=== PATIENT | female | born 1960 | race Caucasian/White ===

== ENCOUNTER 2018-03-02 10:11 | Outpatient (CLI) | payer BC | END 2018-03-02 10:12 | disposition home or self-care (01) | LOC: BICMAMMO 10:11 | PROVIDERS: ATTEND Obstetrics & Gynecology | DX: Z12.31 Encounter for screening mammogram for malignant neoplasm of breast (principal) | CPT/HCPCS: 77063; 77067 ==

== ENCOUNTER 2019-03-03 12:48 | Outpatient (CLI) | payer BC ==
--- NOTE | 2019-03-03 14:18 | MMO ---
Bilateral MAMMO Bilat Screen [facility]. CLINICAL HISTORY: Patient is 58 years old and is seen for screening. The patient has no family history of breast cancer. The patient has no personal history of cancer. VIEWS: The views performed were: bilateral craniocaudal with tomosynthesis and bilateral mediolateral oblique with tomosynthesis. FILMS COMPARED: The present examination has been compared to prior imaging studies performed at [facility] on 02/05/2015, 02/14/2016, 02/25/2017 and 03/02/2018. This study has been interpreted with the assistance of computer-aided detection. MAMMOGRAM FINDINGS: The breasts are almost entirely fat. There is an irregular mass measuring 15 millimeters with spiculated margins seen in the upper-outer region of the right breast. Suspicious adjacent pleomorphic calcifications are noted. In the left breast, there are no suspicious masses, calcifications or areas of architectural distortion. IMPRESSION: MASS IN THE RIGHT BREAST REQUIRES ADDITIONAL EVALUATION. ADDITIONAL IMAGING. Recommend diagnostic mammography and focused breast ultrasound. THE RESULTS OF THIS EXAM WERE SENT TO THE PATIENT. ACR BI-RADS Category 0 - Incomplete: Need additional imaging evaluation. [facility] will notify the patient of the need for additional imaging services. MAMMOGRAPHY NOTE: 1. A negative mammogram report should not delay a biopsy if a dominant of clinically suspicious mass is present. 2. Approximately 10% to 15% of breast cancers are not detected by mammography. 3. Adenosis and dense breasts may obscure an underlying neoplasm. Reported by: EDISON STONE MD Electonically Signed: [id number]
== END 2019-03-03 12:49 | disposition home or self-care (01) ==
LOC: BICMAMMO 12:48
PROVIDERS: ATTEND Obstetrics & Gynecology
DX: Z12.31 Encounter for screening mammogram for malignant neoplasm of breast (principal); N63.10 Unspecified lump in the right breast, unspecified quadrant
CPT/HCPCS: 77063; 77067

== ENCOUNTER 2019-03-04 09:58 | Outpatient (CLI) | payer BC ==
--- NOTE | 2019-03-04 11:27 | MMO ---
Right Breast MAMMO Unilat Diag [facility]. CLINICAL HISTORY: Patient is 58 years old and is seen for diagnostic exam. The patient has no family history of breast cancer. The patient has no personal history of cancer. VIEWS: The views performed were: right craniocaudal spot compression with tomosynthesis; right mediolateral oblique spot compression with tomosynthesis; and right mediolateral with tomosynthesis. FILMS COMPARED: The present examination has been compared to prior imaging studies performed at [facility] on 02/25/2017, 03/02/2018, 03/03/2019 and 03/04/2019. This study has been interpreted with the assistance of computer-aided detection. MAMMOGRAM FINDINGS: The breast is almost entirely fat. There is an irregular mass measuring 21 millimeters with associated Fine linear-branching calcifications seen in the middle region of the right breast at 10 o'clock. IMPRESSION: MASS IN THE RIGHT BREAST IS HIGHLY SUGGESTIVE OF MALIGNANCY. BIOPSY IS RECOMMENDED. THE FINDINGS AND RECOMMENDATIONS WERE DISCUSSED WITH THE PATIENT PRIOR TO HER LEAVING THE CENTER. THE RESULTS OF THIS EXAM WERE SENT TO THE PATIENT. ACR BI-RADS Category 5 - Highly suggestive of malignancy - appropriate action should be taken MAMMOGRAPHY NOTE: 1. A negative mammogram report should not delay a biopsy if a dominant of clinically suspicious mass is present. 2. Approximately 10% to 15% of breast cancers are not detected by mammography. 3. Adenosis and dense breasts may obscure an underlying neoplasm. Reported by: ROCIO WAITE MD Electonically Signed: [id number]
--- NOTE | 2019-03-04 13:13 | ULT ---
RIGHT BREAST DIAGNOSTIC ULTRASOUND: INDICATIONS: Suspicious mass in the right breast 10 o'clock position. FINDINGS: Corresponding to the suspicious mass seen on the mammogram dated 03/04/2019 is a spiculated, hypoecho ic, shadowing mass, measuring 1.7 x 2.1 x 1.4 cm in the right breast 10 o'clock position, 7 cm from t he nipple. No suspicious adenopathy is evident within the right axilla. IMPRESSION: BI-RADS category 5 - highly suggestive of malignancy. Recommend ultrasound guided core biopsy. Pascual lambert were discussed with the patient. Findings called to Dr. Zamora' office at 11:23 a.m. on 03/04/2019. CODE CR POS: OFF
== END 2019-03-04 09:59 | disposition home or self-care (01) ==
LOC: BICMAMMO 09:58
PROVIDERS: ATTEND Obstetrics & Gynecology
DX: N63.10 Unspecified lump in the right breast, unspecified quadrant (principal)
CPT/HCPCS: G0279

== ENCOUNTER 2019-04-01 07:27 | Outpatient (CLI) | payer BC ==
[2019-04-01 15:40] LABS: #Eosinphils 0.2 thou/uL (0.0-0.7); #Lymphocytes 3.4 thou/uL (1.20-3.40); #Monocytes 0.5 thou/uL (0.11-0.59); #Neutrophils 6.6 thou/uL (1.40-6.50); %Basophils 0.4 % (0.0-1.0); %Eosinophils 1.6 % (0.0-10.0); %Lymphocytes 31.7 % (21.0-51.0); %Monocytes 4.7 % (0.0-10.0); %Neutrophils 61.6 % (42.0-75.0); Hemoglobin 13.7 g/dL (12.0-16.0); Mean Corpuscular HGB CONC 31.9 g/dL (32.0-36.0); Mean Corpuscular Hemoglobin 29.9 pg (27.0-31.0); Mean Corpuscular Volume 93.8 fL (78.0-98.0); Mean Platelet Volume 6.4 fL (7.4-10.4); Platelet Count 540 thou/uL (130-400); RBC Distribution Width 12.5 % (11.5-14.5); White Blood Cell (WBC) Count 10.7 thou/uL (4.8-10.8)
[2019-04-01 16:05] LABS: Anion Gap 13 mmol/L (10-20); BUN (Urea Nitrogen) 20 mg/dL (9.8-20.1); Calc. Creatinine Clearance 0 mL/min (70-130); Carbon Dioxide 30 mmol/L (22-29); Chloride 101 mmol/L (98-107); Estimated GFR-MDRD 75; Glucose 110 mg/dL (70-105); Potassium 4.1 mmol/L (3.5-5.1); Sodium 140 mmol/L (136-145)
--- NOTE | 2019-04-03 14:30 | EKG ---
Test Reason : Blood Pressure : / mmHG Vent. Rate : 082 BPM Atrial Rate : 082 BPM P-R Int : 184 ms QRS Dur : 072 ms QT Int : 352 ms P-R-T Axes : 060 020 038 degrees QTc Int : 411 ms Normal sinus rhythm Normal ECG When compared with ECG of 09-DEC-2012 17:32, No significant change was found Confirmed by YUE BLANCHARD (2) on 04/03/2019 2:30:20 PM Referred By: DALTON Confirmed By:YUE BLANCHARD
== END 2019-04-01 07:28 | disposition home or self-care (01) ==
LOC: LABBT 07:27
PROVIDERS: ATTEND Specialist
DX: Z01.818 Encounter for other preprocedural examination (principal); C50.911 Malignant neoplasm of unspecified site of right female breast
CPT/HCPCS: 80048; 85025; 93005; 93010

== ENCOUNTER 2019-04-05 06:55 | Day surgery (SDC) | payer BC ==
[2019-04-01 14:46] VITALS: BMI 32.8
--- NOTE | 2019-04-05 09:11 | NM ---
NUCLEAR MEDICINE LYMPHOSCINTIGRAPHY RIGHT BREAST: CLINICAL HISTORY: Malignant neoplasm of right breast. FINDINGS: Subsequent to administration of 0.402 mCi technetium 99m filtered sulfur colloid, of the perihilar di stribution of the right breast, there is visualization of activity at the right axilla localizing to expected region of right axillary lymph node. IMPRESSION: Right breast lymphoscintigraphy, as above. Transcribed Date/Time: 04/05/2019 9:13 AM
[2019-04-05] MEDS ORDERED: Lidocaine 1% PF 5 ML VIAL ONE (10:11)
[2019-04-05] MEDS ORDERED: PROPOFOL 200 MG/20 ML VIAL ONE (10:11)
[2019-04-05] MEDS ORDERED: Ondansetron PF 4 MG/2 ML Vial ONE (10:11)
[2019-04-05] MEDS ORDERED: Ketorolac Tromethamine 30 MG/ML VIAL ONE (11:21)
[2019-04-05] MEDS ORDERED: Fentanyl 100 MCG/2 ML VIAL ONE (11:37)
[2019-04-05] MEDS ORDERED: Bupivacaine 0.25% HCL 30 ML VIAL ONE ×2 (11:40→13:44)
[2019-04-05] MEDS ORDERED: Lidocaine 1% w/Epinephrine 1:100K 20 ML VIAL ONE ×2 (11:40→13:44)
[2019-04-05] MEDS ORDERED: Isosulfan Blue 50 MG/5 ML VIAL ONE (11:40)
--- NOTE | 2019-04-05 13:44 | MMO ---
RIGHT BREAST SPECIMEN: INDICATION: Right breast mass. COMPARISON: Diagnostic evaluation of 03/04/2019. FINDINGS: Two submitted specimen radiographs were presented from a surgical excision. The specimen contains a spiculated hyperdense mass, biopsy clip, and portions of a wire. IMPRESSION: Submitted specimen radiograph contains a mass, clip, and biopsy wire. Findings were called to the OR to Dr. Gonzalez at 1:39 p.m. on 04/05/2019. CODE CR POS: OFF
--- NOTE | 2019-04-05 18:46 | OP ---
DATE OF PROCEDURE: 04/05/2019 PREOPERATIVE DIAGNOSIS: Right breast cancer. POSTOPERATIVE DIAGNOSIS: Right breast cancer. TEST PERFORMED: Ultrasound-guided right breast needle localization, needle localized right breast lumpectomy, and right axillary sentinel lymph node biopsy. ANESTHESIA: General endotracheal. INDICATIONS: Patient is a 58-year-old white female. Recent imaging studies revealed a concerning area in her upper outer right breast. I performed an ultrasound-guided biopsy revealing invasive ductal carcinoma. After discussing options with the patient, she has elected to proceed with breast conservation surgery, for which she presents today. Lymphoscintigraphy was performed preoperatively revealing sentinel lymph nodes within the right axilla. DESCRIPTION OF OPERATION: Informed consent was obtained, patient was taken to the operating room, where general endotracheal anesthesia obtained. Patient in supine position. The right breast was infiltrated with 4 mL of Lymphazurin in the periareolar subdermal tissue. The breast was massaged for 5 minutes. It was then prepped with ChloraPrep and draped in a sterile fashion so as to include the axilla as well. Attention was turned first to the axilla. A transverse low axillary incision was created after local anesthetic was infiltrated. Dissection was carried through skin and subcutaneous tissue. Within the axilla, the Neoprobe was used to identify areas of maximum radio intensity. In so doing, I was able to identify 2 separate sentinel lymph nodes, each of which was dissected circumferentially between clamps and 2-0 silk ties and removed and passed off the field for permanent pathology. The first lymph node had counts in excess of 400 and was blue-stained. The second lymph node had counts of in excess of 150 and had minimal staining. There was no other area within the axilla that had count over about 15. There was no other blue lymphatic tissue identified either. Meticulous hemostasis was obtained with electrocautery. The wound was closed in layers with 3-0 and 4-0 Monocryl. An additional local anesthetic was infiltrated into the wound during closure. Attention was turned to the right breast. Ultrasound was utilized to identify the area of obvious malignancy at approximately the [address] about 7 cm from the nipple. The location of the malignancy was marked on the breast in a grid-like fashion. This was relatively superficial and was decided to take an island of skin over the top of the lesion and in light of the patient's large breast size. A localizing needle was passed through the malignancy in a medial to lateral fashion. An ellipse of skin was marked overlying the malignancy and incorporating the wire. Dissection was carried through skin and subcutaneous tissue. Flaps were raised superiorly and inferiorly as well as medially. Dissection was then carried down around the needle skirting underneath the needle as the needle had intensely been placed towards the posterior aspect of the lesion. I attempted to obtain wide margins superiorly and inferiorly. At the lateral aspect, the dissection was completed and the specimen was removed intact. It was tagged for orientation with sutures and submitted for specimen mammography. This revealed the malignancy and the biopsy clip to be present within the specimen. When I interrogated the specimen with ultrasound, however, it appeared that the margin was relatively close on the superior aspect, especially more superficially. I therefore decided to obtain an additional superior margin. This was dissected, removed from within the breast and tagged for orientation. This was nearly another centimeter of tissue in the superior aspect. It appeared by ultrasound that all of the margins were likely to be negative. Meticulous hemostasis obtained with electrocautery. The wound was irrigated. The wound was closed in layers with 3-0 and 4-0 Monocryl. Additional local anesthetic was infiltrated during closure. The anesthetic used was a mixture of 1% lidocaine with epinephrine and 0.25% Marcaine. Dermabond was placed externally over both the breast and the axillary incision. Patient tolerated the procedure well and there was negligible blood loss. She was taken to recovery room in stable condition. Job ID: [id number]
== END 2019-04-05 16:20 | disposition home or self-care (01) ==
LOC: SDC 06:55
PROVIDERS: ATTEND Specialist
DX: C50.411 Malignant neoplasm of upper-outer quadrant of right female breast (principal); E11.9 Type 2 diabetes mellitus without complications; I10 Essential (primary) hypertension; Z17.0 Estrogen receptor positive status [ER+]; Z79.84 Long term (current) use of oral hypoglycemic drugs; Z79.899 Other long term (current) drug therapy
CPT/HCPCS: 76098; 78195; 88307; 88342; A9541; J0131; J0690; J1885; J2001; J2405; J2704; J3010; Q9968; S0020

== ENCOUNTER 2019-05-09 06:34 | Day surgery (SDC) | payer BC ==
[2019-05-06 09:13] VITALS: BMI 33.2
[2019-05-09] MEDS ORDERED: Fentanyl 100 MCG/2 ML VIAL ONE ×2 (06:40)
[2019-05-09] MEDS ORDERED: Midazolam HCl 2 mg/2 ml Vial ONE (06:44)
[2019-05-09] MEDS ORDERED: Propofol 500 MG/50 ML VIAL ONE (06:44)
[2019-05-09] MEDS ORDERED: Ketorolac Tromethamine 30 MG/ML VIAL ONE (07:21)
[2019-05-09] MEDS ORDERED: Lidocaine 1% w/Epinephrine 1:100K 20 ML VIAL ONE (07:57)
[2019-05-09] MEDS ORDERED: Bupivacaine PF 0.5% 30 ML VIAL ONE (07:57)
--- NOTE | 2019-05-09 09:57 | RAD ---
EXAM: Single view of the chest HISTORY: Mediport placement COMPARISON: 12/09/2012 FINDINGS: Single view of the chest shows a normal sized cardiomediastinal silhouette. A left subclav nestor Mediport is seen with its tip in the superior vena cava. No pneumothorax is seen. There is no evidence of consolidation, mass, or pleural effusion. The bones are unremarkable. IMPRESSION: Status post Mediport placement without evidence of complication.
--- NOTE | 2019-05-09 11:06 | OP ---
DATE OF PROCEDURE: 05/09/2019 PREOPERATIVE DIAGNOSIS: Right breast cancer, needing chemotherapy access. POSTOPERATIVE DIAGNOSIS: Right breast cancer, needing chemotherapy access. PROCEDURES PERFORMED: Left subclavian vein standard size MediPort . ANESTHESIA: Intravenous sedation with local, 0.5% Marcaine 30 mL, mixed with 1% Xylocaine with epinephrine 30 mL. DESCRIPTION OF PROCEDURE: The patient was taken to the operating room, where under intravenous sedation, chest and neck were prepared with ChloraPrep and draped in routine fashion. Local anesthetic was infiltrated in the skin and subcutaneous tissue about the operative site. Infraclavicular approach used to cannulate the left subclavian vein, threading the J-wire, enlarging the skin site sharply, developing the subcutaneous pocket with blunt and sharp dissection, obtaining hemostasis with cautery. Dilator and Peel-Away sheath placed over the J-wire into the superior vena cava. Dilator and J-wire were removed. Catheter placed through the Peel-Away sheath and Peel-Away sheath removed. MediPort placed in the pocket, secured with 2 interrupted sutures of 3-0 Prolene, and after the J-wire removed, the catheter tailored to length under fluoroscopic visualization. Tip placed in optimal position in the superior vena cava. Catheter secured to the MediPort with the connecting device and subcutaneous tissue was approximated with 3-0 Monocryl, skin with subdermal 4-0 Monocryl. Final fluoroscopic images revealed good line placement. MediPort accessed with a Luther needle, aspirated blood and flushed with heparinized saline solution. The patient tolerated the procedure well. Job ID: [id number]
== END 2019-05-09 10:23 | disposition home or self-care (01) ==
LOC: SDC 06:34
PROVIDERS: ATTEND Specialist
PROC: 02HV33Z Insertion of Infusion Device into Superior Vena Cava, Percutaneous Approach (ICD-10-PCS; principal; 2019-05-09)
DX: C50.911 Malignant neoplasm of unspecified site of right female breast (principal); I10 Essential (primary) hypertension; E11.9 Type 2 diabetes mellitus without complications; Z17.0 Estrogen receptor positive status [ER+]; Z79.84 Long term (current) use of oral hypoglycemic drugs; Z79.899 Other long term (current) drug therapy
CPT/HCPCS: 71045; C1788; J0131; J0690; J1642; J1885; J2250; J2704; J3010; S0020

== ENCOUNTER 2019-11-29 10:24 | Outpatient (CLI) | payer BC ==
--- NOTE | 2019-11-29 10:58 | BD ---
EXAM: DEXA bone density examination HISTORY: 59-year-old postmenopausal female for screening COMPARISON: None FINDINGS: L1--bone mineral density 0.914 g/sq cm; T score -0.7 L2--bone mineral density 0.868 g/sq cm; T score -1.5 L3--bone mineral density 0.910 g/sq cm; T score -1.6 L4--bone mineral density 0.920 g/sq cm; T score -1.3 Total L1-L4--bone mineral density 0.903 g/sq cm; T score -1.3 Left femoral neck--bone mineral density0.689; T score -1.4 Total proximal left femur--bone mineral density 0.96; T score -0.4 IMPRESSION: Osteopenia. This patient has a 10 year WHO fracture risk of a major osteoporotic fracture of 7.6% and of a hip fracture of 0.6%.
== END 2019-11-29 10:25 | disposition home or self-care (01) ==
LOC: BICMAMMO 10:24
PROVIDERS: ATTEND Internal Medicine Hematology & Oncology
DX: Z13.820 Encounter for screening for osteoporosis (principal); C50.411 Malignant neoplasm of upper-outer quadrant of right female breast; M85.89 Other specified disorders of bone density and structure, multiple sites; Z78.0 Asymptomatic menopausal state
CPT/HCPCS: 77080

== ENCOUNTER 2020-03-23 10:32 | Outpatient (CLI) | payer BC ==
--- NOTE | 2020-03-23 11:13 | MMO ---
Bilateral MAMMO Bilat Diag [facility]. CLINICAL HISTORY: Patient is 59 years old and is seen for diagnostic exam. The patient has no family history of breast cancer. The patient has a history of Excisional biopsy procedure revealed invasive moderately differentiated ductal right breast carcinoma in March,. The patient has a history of right Ultrasound Guided Core Biopsy in 2019 - malignant and right Lumpectomy in 2019 - malignant. VIEWS: The views performed were: bilateral craniocaudal with tomosynthesis; bilateral mediolateral oblique with tomosynthesis; and bilateral mediolateral with tomosynthesis. FILMS COMPARED: The present examination has been compared to prior imaging studies performed at [facility] on 03/02/2018, 03/03/2019 and 03/04/2019. This study has been interpreted with the assistance of computer-aided detection. MAMMOGRAM FINDINGS: There are scattered fibroglandular densities. Finding 1: There are stable benign appearing calcifications seen in both breasts. Finding 2: There is an area of architectural distortion with associated post-surgical scar seen in the upper-outer region of the right breast. There are no suspicious masses, suspicious calcifications, or new areas of architectural distortion. IMPRESSION: THERE IS NO MAMMOGRAPHIC EVIDENCE OF MALIGNANCY. A ROUTINE FOLLOW-UP MAMMOGRAM IN 1 YEAR IS RECOMMENDED. THE RESULTS OF THIS EXAM WERE SENT TO THE PATIENT. ACR BI-RADS Category 2 - Benign finding MAMMOGRAPHY NOTE: 1. A negative mammogram report should not delay a biopsy if a dominant of clinically suspicious mass is present. 2. Approximately 10% to 15% of breast cancers are not detected by mammography. 3. Adenosis and dense breasts may obscure an underlying neoplasm. Reported by: JOSE MIGUEL GALLOWAY MD Electonically Signed: [id number]
== END 2020-03-23 10:33 | disposition home or self-care (01) ==
LOC: BICMAMMO 10:32
PROVIDERS: ATTEND Specialist
DX: C50.911 Malignant neoplasm of unspecified site of right female breast (principal)
CPT/HCPCS: 77066; G0279

== ENCOUNTER 2020-11-29 10:41 | Outpatient (CLI) | payer BC | END 2020-11-29 10:42 | disposition home or self-care (01) | LOC: BICMAMMO 10:41 | PROVIDERS: ATTEND Internal Medicine Hematology & Oncology | DX: M85.89 Other specified disorders of bone density and structure, multiple sites (principal); C50.919 Malignant neoplasm of unspecified site of unspecified female breast; Z79.811 Long term (current) use of aromatase inhibitors | CPT/HCPCS: 77080 ==

== ENCOUNTER 2021-03-25 09:58 | Outpatient (CLI) | payer BC | END 2021-03-25 09:59 | disposition home or self-care (01) | LOC: BICMAMMO 09:58 | PROVIDERS: ATTEND Specialist | DX: Z08 Encounter for follow-up examination after completed treatment for malignant neoplasm (principal); Z85.3 Personal history of malignant neoplasm of breast | CPT/HCPCS: 77066; G0279 ==

== ENCOUNTER 2021-10-16 18:23 | Inpatient (IN) | payer BC ==
[2021-10-16] MEDS ORDERED: Ketorolac Tromethamine 30 MG/ML VIAL ONE (19:52)
[2021-10-16 20:05] LABS: Mean Corpuscular HGB CONC 32.8 g/dL (32.0-36.0); Mean Corpuscular Hemoglobin 31.3 pg (27.0-31.0); Mean Corpuscular Volume 95.6 fL (78.0-98.0); Mean Platelet Volume 5.9 fL (7.4-10.4); Platelet Count 322 thou/uL (130-400); RBC Distribution Width 12.6 % (11.5-14.5); Red Blood Cell (RBC) Count 3.83 mill/uL (4.20-5.40)
[2021-10-16 20:08] LABS: Bacteria/HPF 4+ HPF (None Seen); Bilirubin Negative (Negative); Blood, Urine 1+ (Negative); Clarity Clear (Clear); Glucose, Urine (Dipstick) Normal (Negative); Ketone, Urine Negative (Negative); Leukocyte 500 Leu/uL (Negative); Nitrite Negative (Negative); Protein, Urine (Dipstick) 70 mg/dL (Neg-Trace); Specific Gravity, Urine 1.016 (1.002-1.036); Squamous Epithelial 0-3 HPF (0-3); Urobilinogen Normal mg/dL (Less than 2); pH, Urine 5.5 (5.0-9.0)
[2021-10-16 20:09] LABS: WBC/HPF Greater than 50 HPF (0-3)
[2021-10-16 20:21] LABS: Band 10 % (5-11); Lymphocytes 8 % (21-51); MDiff Complete? YES; Monocytes 7 % (0-10); Neutrophil 74 % (42-75); Platelet Morphology Comment Appears Adequate; Polychromasia SLIGHT = 2-3 cells (100X) (0-2/hpf); Reactive Lymphocytes 1 % (0-10)
[2021-10-16 20:22] LABS: ALT (SGPT) 29 U/L (8-55); AST (SGOT) 21 U/L (5-34); Albumin 3.6 g/dL (3.4-4.8); Alkaline Phosphatase 107 U/L (40-110); Anion Gap 15 mmol/L (10-20); BUN (Urea Nitrogen) 21 mg/dL (9.8-20.1); Bilirubin, Total 0.7 mg/dL (0.2-1.2); Calc. Creatinine Clearance 0 mL/min (70-130); Calcium 9.3 mg/dL (7.8-10.44); Carbon Dioxide 28 mmol/L (23-31); Chloride 95 mmol/L (98-107); Globulin 3.7 g/dL (2.4-3.5); Glucose 213 mg/dL (80-115); Potassium 3.5 mmol/L (3.5-5.1); Protein, Total 7.3 g/dL (5.8-8.1); Sodium 134 mmol/L (136-145)
[2021-10-16] MEDS ORDERED: cefTRIAXone\\ROCEPHIN 1 GM VIAL ONE (20:31)
[2021-10-16] MEDS ORDERED: Piperacillin/Tazobactam 3.375 GM in Sodium Chloride 0.9% 100 ML IVPB SCH (22:45)
[2021-10-16] MEDS ORDERED: Acetaminophen 650 MG Suppository PR PRN (23:31)
[2021-10-16] MEDS ORDERED: Ondansetron ODT 4 MG TAB PO PRN (23:31)
[2021-10-16] MEDS ORDERED: Ondansetron PF 4 MG/2 ML Vial IVP PRN (23:31)
[2021-10-16] MEDS ORDERED: Acetaminophen 325 MG TAB PO PRN (23:31)
[2021-10-17] MEDS ORDERED: Dextrose 50% Abboject 50 ML SYRINGE SLOW IVP PRN (01:26)
[2021-10-17] MEDS ORDERED: Dextrose 5% in Water 1,000 ML IV PRN (01:26)
[2021-10-17] MEDS ORDERED: HumaLOG 300 UNITS/3 ML VIAL SC PRN ×2 (01:26)
[2021-10-17 01:54] VITALS: BMI 35.3
[2021-10-17] MEDS ORDERED: VANCOMYCIN 1.25 GM/250 ML BAG 1.25 GM in Premix Bag 1 BAG IVPB SCH (02:00)
[2021-10-17] MEDS: Sodium Chloride 0.9% 1,000 ML IV SCH ×3 (02:57→20:00)
[2021-10-17] MEDS: Vancomycin 1.5 GRAM/300 ML BAG 1.5 GM in Premix Bag 1 BAG IVPB SCH (04:11)
[2021-10-17 07:32] LABS: #Lymphocytes 0.8 thou/uL (1.20-3.40); #Monocytes 0.5 thou/uL (0.11-0.59); #Neutrophils 10.5 thou/uL (1.40-6.50); %Basophils 0.1 % (0.0-1.0); %Eosinophils 0.4 % (0.0-10.0); %Lymphocytes 6.4 % (21.0-51.0); %Monocytes 4.2 % (0.0-10.0); Hemoglobin 11.2 g/dL (12.0-16.0); Mean Corpuscular HGB CONC 32.7 g/dL (32.0-36.0); Mean Corpuscular Hemoglobin 31.7 pg (27.0-31.0); Mean Corpuscular Volume 97.2 fL (78.0-98.0); Mean Platelet Volume 6.5 fL (7.4-10.4); Platelet Count 311 thou/uL (130-400); RBC Distribution Width 12.5 % (11.5-14.5); Red Blood Cell (RBC) Count 3.54 mill/uL (4.20-5.40); White Blood Cell (WBC) Count 11.8 thou/uL (4.8-10.8)
[2021-10-17 07:53] LABS: Anion Gap 12 mmol/L (10-20); BUN (Urea Nitrogen) 21 mg/dL (9.8-20.1); Calc. Creatinine Clearance 84 mL/min (70-130); Calcium 9.1 mg/dL (7.8-10.44); Carbon Dioxide 27 mmol/L (23-31); Chloride 100 mmol/L (98-107); Glucose 170 mg/dL (80-115); Hemoglobin A1c 7.8 % (4.0-6.0); Potassium 3.4 mmol/L (3.5-5.1); Sodium 136 mmol/L (136-145)
[2021-10-17] MEDS: Enoxaparin Sodium 40 MG/0.4 ML SYRINGE SC SCH (08:14)
[2021-10-17] MEDS: Piperacillin/Tazobactam 3.375 GM in Sodium Chloride 0.9% 100 ML IVPB SCH ×4 (08:26→17:43)
[2021-10-17] MEDS: Ketorolac Tromethamine 30 MG/ML VIAL IVP PRN (14:06)
[2021-10-18] MEDS: Piperacillin/Tazobactam 3.375 GM in Sodium Chloride 0.9% 100 ML IVPB SCH ×3 (00:41→16:53)
[2021-10-18] MEDS: Sodium Chloride 0.9% 1,000 ML IV SCH ×2 (00:45→10:58)
[2021-10-18] MEDS: Ketorolac Tromethamine 30 MG/ML VIAL IVP PRN ×2 (03:13→20:35)
[2021-10-18] MEDS: Vancomycin 1.5 GRAM/300 ML BAG 1.5 GM in Premix Bag 1 BAG IVPB SCH (04:44)
[2021-10-18] MEDS: Enoxaparin Sodium 40 MG/0.4 ML SYRINGE SC SCH (08:01)
[2021-10-18 08:37] LABS: #Eosinphils 0.1 thou/uL (0.0-0.7); #Lymphocytes 1.1 thou/uL (1.20-3.40); #Monocytes 0.6 thou/uL (0.11-0.59); #Neutrophils 5.7 thou/uL (1.40-6.50); %Basophils 0.3 % (0.0-1.0); %Eosinophils 1.5 % (0.0-10.0); %Lymphocytes 14.3 % (21.0-51.0); %Monocytes 8.3 % (0.0-10.0); %Neutrophils 75.7 % (42.0-75.0); Hemoglobin 10.8 g/dL (12.0-16.0); Mean Corpuscular HGB CONC 31.7 g/dL (32.0-36.0); Mean Corpuscular Volume 97.7 fL (78.0-98.0); Mean Platelet Volume 5.7 fL (7.4-10.4); Platelet Count 360 thou/uL (130-400); RBC Distribution Width 12.7 % (11.5-14.5); White Blood Cell (WBC) Count 7.6 thou/uL (4.8-10.8)
[2021-10-18 09:04] LABS: Anion Gap 12 mmol/L (10-20); BUN (Urea Nitrogen) 18 mg/dL (9.8-20.1); Calc. Creatinine Clearance 85 mL/min (70-130); Carbon Dioxide 26 mmol/L (23-31); Chloride 102 mmol/L (98-107); Glucose 188 mg/dL (80-115); Potassium 3.4 mmol/L (3.5-5.1); Sodium 137 mmol/L (136-145)
[2021-10-18] MEDS ORDERED: Non-Formulary Item 1 EACH (Sitagliptin Phos/Metformin Hcl [Janumet] 50 MG/500 MG Tablet) PO SCH (09:36)
[2021-10-18] MEDS: metFORMIN 500 MG TAB PO SCH (16:54)
[2021-10-18] MEDS: Alogliptin 6.25 MG TAB PO SCH (16:54)
[2021-10-18] MEDS ORDERED: Simvastatin 10 MG TAB PO SCH (21:00)
[2021-10-19] MEDS: Piperacillin/Tazobactam 3.375 GM in Sodium Chloride 0.9% 100 ML IVPB SCH ×2 (00:59→10:20)
[2021-10-19] MEDS ORDERED: Anastrozole 1 MG TAB PO SCH (09:00)
[2021-10-19] MEDS: metFORMIN 500 MG TAB PO SCH ×2 (10:22→18:06)
[2021-10-19] MEDS: Enoxaparin Sodium 40 MG/0.4 ML SYRINGE SC SCH (10:22)
[2021-10-19] MEDS: Alogliptin 6.25 MG TAB PO SCH ×2 (10:22→18:06)
[2021-10-19] MEDS ORDERED: cefTRIAXone\\ROCEPHIN 1 GM in Sodium Chloride 0.9% 100 ML IVPB SCH (17:00)
[2021-10-19 19:24] VITALS: BP 148/66; TEMP 98.5
== END 2021-10-19 19:25 | disposition home or self-care (01) | DRG 872 ==
LOC: ERS 18:23 → INTOOBSV 22:03 → T4-B 22:03 → OBSVTOIN 10-17 11:48
PROVIDERS: ADMIT Internal Medicine; ATTEND Internal Medicine
DX: A41.51 Sepsis due to Escherichia coli [E. coli] (principal); N13.6 Pyonephrosis; E87.1 Hypo-osmolality and hyponatremia; E87.0 Hyperosmolality and hypernatremia; Z23 Encounter for immunization; N18.2 Chronic kidney disease, stage 2 (mild); Z20.822 Contact with and (suspected) exposure to COVID-19; E78.00 Pure hypercholesterolemia, unspecified; C50.911 Malignant neoplasm of unspecified site of right female breast; E78.5 Hyperlipidemia, unspecified; I12.9 Hypertensive chronic kidney disease with stage 1 through stage 4 chronic kidney disease, or unspecified chronic kidney disease; E11.22 Type 2 diabetes mellitus with diabetic chronic kidney disease; E87.6 Hypokalemia; Z98.51 Tubal ligation status; Z90.710 Acquired absence of both cervix and uterus; Z98.890 Other specified postprocedural states; Z79.899 Other long term (current) drug therapy
CPT/HCPCS: 36415; 36416; 74176; 80048; 80053; 81003; 81015; 83036; 83605; 85025; 87040; 87077; 87086; 87149; 87186; 96365; 96372; 96374; 96375; 96376; G0378; J0696; J1650; J1815; J1885; J2543; J3370; J3490; J7050; U0003; U0005

== ENCOUNTER 2021-10-31 13:21 | Outpatient (CLI) | payer BC ==
[2021-10-31 14:43] LABS: Bilirubin Neg (Negative); Blood, Urine Negative (Negative); Clarity Clear (Clear); Glucose, Urine (Dipstick) Normal (Negative); Ketone, Urine Negative (Negative); Leukocyte 25 (Negative); Nitrite Negative (Negative); Protein, Urine (Dipstick) Negative (Neg-Trace); Specific Gravity, Urine 1.005 (1.002-1.036); Urobilinogen Normal mg/dL (Less than 2)
[2021-10-31 14:50] LABS: Hemoglobin 12.8 g/dL (12.0-15.5); Mean Corpuscular HGB CONC 31.5 g/dL (32.0-36.0); Mean Corpuscular Volume 95.1 fl (81.6-98.3); Mean Platelet Volume 9.3 fl (7.4-10.4); Platelet Count 662 10x3/uL (150-450); RBC Distribution Width 13.4 % (11.5-14.5); Red Blood Cell (RBC) Count 4.27 10x6/uL (3.90-5.03); White Blood Cell (WBC) Count 10.7 10x3/uL (3.5-10.5)
[2021-10-31 14:51] LABS: Bacteria/HPF None Seen HPF (None Seen); RBC/HPF 0-3 HPF (0-3); Squamous Epithelial 0-3 HPF (0-3); WBC/HPF 0-3 HPF (0-3)
[2021-10-31 15:08] LABS: Anion Gap 22 mmol/L (10-20); BUN (Urea Nitrogen) 21 mg/dL (9.8-20.1); Calc. Creatinine Clearance 0 mL/min (70-130); Calcium 10.3 mg/dL (7.8-10.44); Carbon Dioxide 25 mmol/L (23-31); Chloride 96 mmol/L (98-107); Glucose 184 mg/dL (80-115); Sodium 138 mmol/L (136-145)
[2021-10-31 15:14] LABS: Potassium 4.9 mmol/L (3.5-5.1)
== END 2021-10-31 13:22 | disposition home or self-care (01) ==
LOC: LABBT 13:21
PROVIDERS: ATTEND Urology
DX: Z01.818 Encounter for other preprocedural examination (principal); N20.0 Calculus of kidney; Z20.822 Contact with and (suspected) exposure to COVID-19
CPT/HCPCS: 80048; 81001; 85027; 87086; 93005; 93010; U0003; U0005

== ENCOUNTER 2021-11-04 07:06 | Day surgery (SDC) | payer BC ==
[2021-11-01 14:27] VITALS: BMI 32.2
[2021-11-04 07:42] LABS: INR-International Normal Ratio 0.9; Prothrombin Time 11.8 sec (12.0-14.7)
[2021-11-04 07:43] LABS: PTT 27.6 sec (22.9-36.1)
[2021-11-04] MEDS ORDERED: cefTRIAXone\\ROCEPHIN 1 GM in Sodium Chloride 0.9% 100 ML IVPB SCH (08:30)
[2021-11-04] MEDS ORDERED: Fentanyl 100 MCG/2 ML VIAL ONE (08:34)
[2021-11-04] MEDS ORDERED: Sodium Bicarbonate 2.5 MEQ/5 ML VIAL ONE (08:34)
[2021-11-04] MEDS ORDERED: Lidocaine 1% PF 5 ML VIAL ONE (08:34)
[2021-11-04] MEDS ORDERED: Midazolam HCl 2 mg/2 ml Vial ONE (08:34)
[2021-11-04 13:57] VITALS: BP 133/71; TEMP 98.9
[2021-11-04] MEDS ORDERED: Iopamidol 300 61% 50 ML VIAL FS ONE (14:02)
== END 2021-11-04 12:35 | disposition home or self-care (01) ==
LOC: SPEC 07:06
PROVIDERS: ATTEND Urology
PROC: 0T133JD Bypass Right Kidney Pelvis to Cutaneous with Synthetic Substitute, Percutaneous Approach (ICD-10-PCS; principal; 2021-11-04)
DX: N20.0 Calculus of kidney (principal); E78.5 Hyperlipidemia, unspecified; E11.9 Type 2 diabetes mellitus without complications; I10 Essential (primary) hypertension; E78.00 Pure hypercholesterolemia, unspecified; Z85.3 Personal history of malignant neoplasm of breast; Z86.14 Personal history of Methicillin resistant Staphylococcus aureus infection; Z79.811 Long term (current) use of aromatase inhibitors; Z79.84 Long term (current) use of oral hypoglycemic drugs; Z79.899 Other long term (current) drug therapy
CPT/HCPCS: 50430; 50433; 85610; 85730; J0696; J2250; J3010; J3490; Q9967

== ENCOUNTER 2021-11-05 08:00 | Day surgery (SDC) | payer BC ==
[2021-11-01 14:42] VITALS: BMI 32.2
[2021-11-05] MEDS ORDERED: CEFAZOLIN 2 GM VIAL ONE (08:29)
[2021-11-05] MEDS ORDERED: Lidocaine 1% MPF 2 ML VIAL ONE (08:29)
[2021-11-05] MEDS ORDERED: Sodium Chloride 0.9% 100 ML ONE (08:30)
[2021-11-05] MEDS ORDERED: Ioversol 68 % 50 ML VIAL ONE (09:59)
[2021-11-05] MEDS ORDERED: fentaNYL Citrate/PF 100 MCG/2 ML SYRINGE ONE (09:59)
[2021-11-05] MEDS ORDERED: Bupivacaine 0.25% HCL 30 ML VIAL ONE (10:01)
[2021-11-05] MEDS ORDERED: Lidocaine 1% PF 5 ML VIAL ONE (10:14)
[2021-11-05] MEDS ORDERED: Ondansetron PF 4 MG/2 ML Vial ONE (10:14)
[2021-11-05] MEDS ORDERED: PROPOFOL 200 MG/20 ML VIAL ONE (10:14)
[2021-11-05] MEDS ORDERED: PHENYLEPHRINE-NS 100 MCG/ML 10 ML SYRINGE ONE (10:14)
[2021-11-05] MEDS ORDERED: Glycopyrrolate 0.2 MG/ML 5 ML SYRINGE ONE (10:14)
[2021-11-05] MEDS ORDERED: Dexamethasone 20 MG/5 ML VIAL ONE (10:14)
[2021-11-05] MEDS ORDERED: Rocuronium Bromide 10 MG/ML (10ML VIAL) ONE (10:14)
[2021-11-05] MEDS ORDERED: Phenazopyridine HCl 100 MG TAB ONE (12:17)
[2021-11-05] MEDS ORDERED: Ketorolac Tromethamine 30 MG/ML VIAL ONE (12:17)
[2021-11-05] MEDS ORDERED: Oxybutynin 5 MG TAB ONE (12:17)
[2021-11-05] MEDS ORDERED: Fentanyl 100 MCG/2 ML VIAL ONE (12:50)
== END 2021-11-05 14:08 | disposition home or self-care (01) ==
LOC: SDC 08:00
PROVIDERS: ATTEND Urology
PROC: 0TC03ZZ Extirpation of Matter from Right Kidney, Percutaneous Approach (ICD-10-PCS; principal; 2021-11-05)
PROC: 0T768DZ Dilation of Right Ureter with Intraluminal Device, Via Natural or Artificial Opening Endoscopic (ICD-10-PCS; principal; 2021-11-05)
DX: N20.0 Calculus of kidney (principal); I10 Essential (primary) hypertension; E11.9 Type 2 diabetes mellitus without complications; Z79.84 Long term (current) use of oral hypoglycemic drugs; Z79.899 Other long term (current) drug therapy
CPT/HCPCS: 74018; 76000; 82365; 88300; C1894; C2617; J0690; J1100; J1885; J2405; J2704; J3010; J3490; Q9967; S0020

== ENCOUNTER 2021-12-18 09:44 | Outpatient (CLI) | payer BC | END 2021-12-18 09:45 | disposition home or self-care (01) | LOC: BICMAMMO 09:44 | PROVIDERS: ATTEND Internal Medicine Hematology & Oncology | DX: M85.89 Other specified disorders of bone density and structure, multiple sites (principal) | CPT/HCPCS: 77080 ==

== ENCOUNTER 2022-03-26 10:16 | Outpatient (CLI) | payer BC | END 2022-03-26 10:17 | disposition home or self-care (01) | LOC: BICMAMMO 10:16 | PROVIDERS: ATTEND Specialist | DX: Z12.31 Encounter for screening mammogram for malignant neoplasm of breast (principal) | CPT/HCPCS: 77063; 77067 ==

== ENCOUNTER 2023-02-14 23:00 | Emergency (ER) | payer BC ==
[2023-02-14 23:52] LABS: #Neutrophils 9.8 thou/uL (1.40-6.50); %Basophils 0.3 % (0.0-1.0); %Eosinophils 0.3 % (0.0-10.0); %Lymphocytes 13.9 % (21.0-51.0); %Monocytes 7.5 % (0.0-10.0); %Neutrophils 77.4 % (42.0-75.0); Hematocrit 39.3 % (36.0-47.0); Hemoglobin 12.8 g/dL (12.0-16.0); Mean Corpuscular HGB CONC 32.6 g/dL (32.0-36.0); Mean Corpuscular Hemoglobin 30.3 pg (27.0-31.0); Mean Corpuscular Volume 93.1 fl (78.0-98.0); Mean Platelet Volume 8.1 fL (7.4-10.4); Platelet Count 408 10x3/uL (130-400); RBC Distribution Width 13.3 % (11.5-14.5); Red Blood Cell (RBC) Count 4.22 mill/uL (4.20-5.40); White Blood Cell (WBC) Count 12.6 10x3/uL (4.8-10.8)
[2023-02-15 00:22] LABS: ALT (SGPT) 10 U/L (8-55); AST (SGOT) 8 U/L (5-34); Albumin 4.2 g/dL (3.4-4.8); Alkaline Phosphatase 94 U/L (40-110); Anion Gap 17 mmol/L (10-20); BUN (Urea Nitrogen) 19 mg/dL (9.8-20.1); Bilirubin, Total 0.4 mg/dL (0.2-1.2); Calc. Creatinine Clearance 0 mL/min (70-130); Carbon Dioxide 29 mmol/L (23-31); Chloride 95 mmol/L (98-107); Estimated GFR 75; Globulin 3.4 g/dL (2.4-3.5); Glucose 165 mg/dL (80-115); Potassium 3.6 mmol/L (3.5-5.1); Protein, Total 7.6 g/dL (5.8-8.1); Sodium 137 mmol/L (136-145)
[2023-02-15 00:31] LABS: Troponin I Less than 0.010 ng/mL (< 0.028)
== END 2023-02-15 01:46 | disposition left against medical advice (07) ==
LOC: ERS 23:00
DX: Z53.21 Procedure and treatment not carried out due to patient leaving prior to being seen by health care provider (principal)
CPT/HCPCS: 36415; 36416; 80053; 84484; 85025

== ENCOUNTER 2023-03-27 08:40 | Outpatient (CLI) | payer BC | END 2023-03-27 08:41 | disposition home or self-care (01) | LOC: BICMAMMO 08:40 | PROVIDERS: ATTEND Specialist | DX: Z12.31 Encounter for screening mammogram for malignant neoplasm of breast (principal); Z85.3 Personal history of malignant neoplasm of breast; Z98.890 Other specified postprocedural states | CPT/HCPCS: 77063; 77067 ==

== ENCOUNTER 2023-04-07 13:53 | Outpatient (CLI) | payer BC | END 2023-04-07 13:54 | disposition home or self-care (01) | LOC: BICMAMMO 13:53 | PROVIDERS: ATTEND Internal Medicine Hematology & Oncology | DX: M85.89 Other specified disorders of bone density and structure, multiple sites (principal); C50.411 Malignant neoplasm of upper-outer quadrant of right female breast; T38.6X5A Adverse effect of antigonadotrophins, antiestrogens, antiandrogens, not elsewhere classified, initial encounter | CPT/HCPCS: 77080 ==

== ENCOUNTER 2023-06-12 13:24 | Inpatient (IN) | payer BC, MEDICARE ==
[2023-06-12] MEDS ORDERED: Cefepime 2 GM VIAL ONE (14:02)
[2023-06-12] MEDS ORDERED: Sodium Chloride 0.9% 100 ML ONE (14:02)
[2023-06-12 14:06] LABS: #Basophils 0.1 thou/uL (0.0-0.2); #Eosinphils 0.2 thou/uL (0.0-0.7); #Monocytes 0.7 thou/uL (0.11-0.59); #Neutrophils 8.4 thou/uL (1.40-6.50); %Basophils 0.5 % (0.0-1.0); %Lymphocytes 14.5 % (21.0-51.0); %Neutrophils 75.6 % (42.0-75.0); Hematocrit 35.5 % (36.0-47.0); Mean Corpuscular Hemoglobin 28.9 pg (27.0-31.0); Mean Corpuscular Volume 93.4 fl (78.0-98.0); Mean Platelet Volume 8.2 fL (7.4-10.4); Platelet Count 686 10x3/uL (130-400); RBC Distribution Width 13.5 % (11.5-14.5); White Blood Cell (WBC) Count 11.1 10x3/uL (4.8-10.8)
[2023-06-12] MEDS ORDERED: LevoFLOXacin 750 mg/D5W 150 ml Premix Bag ONE (14:16)
[2023-06-12 14:18] LABS: Prothrombin Time 13.1 sec (12.0-14.7)
[2023-06-12 14:21] LABS: Bilirubin Negative (Negative); Blood, Urine Negative (Negative); CAUTI Indications for Culture Fever or rigors; Clarity Clear (Clear); Glucose, Urine (Dipstick) >=1000 mg/dL (Negative); Ketone, Urine Negative (Negative); Leukocyte 500 Leu/uL (Negative); Nitrite Negative (Negative); Protein, Urine (Dipstick) 10 mg/dL (Neg-Trace); Squamous Epithelial 0-3 HPF (0-3); Urobilinogen Normal mg/dL (Less than 2); WBC/HPF Greater than 50 HPF (0-3)
[2023-06-12 14:22] LABS: Bacteria/HPF 1+ HPF (None Seen)
[2023-06-12 14:24] LABS: Urine Culture Reflex Yes Yes
[2023-06-12 14:38] LABS: ALT (SGPT) 12 U/L (8-55); AST (SGOT) 11 U/L (5-34); Alkaline Phosphatase 107 U/L (40-110); Anion Gap 15 mmol/L (10-20); BUN (Urea Nitrogen) 24 mg/dL (9.8-20.1); Bilirubin, Total 0.2 mg/dL (0.2-1.2); Calc. Creatinine Clearance 0 mL/min (70-130); Calcium 9.5 mg/dL (7.8-10.44); Carbon Dioxide 27 mmol/L (23-31); Chloride 96 mmol/L (98-107); Estimated GFR 41; Globulin 4.6 g/dL (2.4-3.5); Glucose 299 mg/dL (80-115); Potassium 4.5 mmol/L (3.5-5.1); Protein, Total 8.6 g/dL (5.8-8.1); Sodium 133 mmol/L (136-145)
[2023-06-12] MEDS ORDERED: HYDROcodone/Acetaminophen 5/325 mg Tablet PO PRN (16:01)
[2023-06-12] MEDS ORDERED: Acetaminophen 325 MG TAB PO PRN (16:01)
[2023-06-12] MEDS ORDERED: Dextrose 5% in Water 1,000 ML IV PRN (16:01)
[2023-06-12] MEDS ORDERED: Guaifenesin DM 100-10/5 ML UDCUP PO PRN (16:01)
[2023-06-12] MEDS ORDERED: Glucagon 1 MG/ML KIT IM PRN (16:01)
[2023-06-12] MEDS ORDERED: Calcium Carbonate 500 MG ChewTAB PO PRN (16:01)
[2023-06-12] MEDS ORDERED: Dextrose 50% Abboject 50 ML SYRINGE SLOW IVP PRN (16:01)
[2023-06-12] MEDS: Vancomycin (BATCH) 2 GM in Premix 1 BAG IVPB SCH (17:00)
[2023-06-12 18:13] VITALS: BMI 23.8
[2023-06-12] MEDS: Sodium Chloride 0.9% 1,000 ML IV SCH (18:39)
[2023-06-12 19:30] LABS: Lactic Acid 2.1 mmol/L (0.5-2.2)
[2023-06-12] MEDS: Famotidine 20 MG TAB PO SCH (21:42)
[2023-06-12] MEDS: Simvastatin 10 MG TAB PO SCH (21:42)
[2023-06-12] MEDS: metFORMIN 500 MG TAB PO SCH (21:43)
[2023-06-12] MEDS: Alogliptin 25 MG TAB PO SCH (21:45)
[2023-06-12] MEDS: Anastrozole 1 MG TAB PO SCH (21:46)
[2023-06-13] MEDS: Cefepime 1 GM in Sodium Chloride 0.9% 100 ML IVPB SCH (02:54)
[2023-06-13 06:24] LABS: #Eosinphils 0.1 thou/uL (0.0-0.7); #Monocytes 0.6 thou/uL (0.11-0.59); %Basophils 0.4 % (0.0-1.0); %Eosinophils 1.5 % (0.0-10.0); %Lymphocytes 14.5 % (21.0-51.0); %Monocytes 6.4 % (0.0-10.0); %Neutrophils 75.4 % (42.0-75.0); Hematocrit 32.2 % (36.0-47.0); Hemoglobin 10.1 g/dL (12.0-16.0); Mean Corpuscular HGB CONC 31.4 g/dL (32.0-36.0); Mean Corpuscular Hemoglobin 28.9 pg (27.0-31.0); Mean Corpuscular Volume 92.3 fl (78.0-98.0); Mean Platelet Volume 8.2 fL (7.4-10.4); Platelet Count 595 10x3/uL (130-400); RBC Distribution Width 13.6 % (11.5-14.5); Red Blood Cell (RBC) Count 3.49 mill/uL (4.20-5.40); White Blood Cell (WBC) Count 9.3 10x3/uL (4.8-10.8)
[2023-06-13 07:05] LABS: ALT (SGPT) 9 U/L (8-55); AST (SGOT) 9 U/L (5-34); Albumin 3.5 g/dL (3.4-4.8); Alkaline Phosphatase 90 U/L (40-110); Anion Gap 12 mmol/L (10-20); BUN (Urea Nitrogen) 19 mg/dL (9.8-20.1); Bilirubin, Total 0.3 mg/dL (0.2-1.2); Calc. Creatinine Clearance 49 mL/min (70-130); Calcium 9.4 mg/dL (7.8-10.44); Carbon Dioxide 24 mmol/L (23-31); Chloride 103 mmol/L (98-107); Estimated GFR 53; Globulin 3.8 g/dL (2.4-3.5); Glucose 164 mg/dL (80-115); Potassium 4.4 mmol/L (3.5-5.1); Protein, Total 7.3 g/dL (5.8-8.1); Sodium 135 mmol/L (136-145)
[2023-06-13] MEDS: Enoxaparin 40 MG (0.4 mL) SYRINGE SC SCH (08:07)
[2023-06-13] MEDS: NIFEdipine XL 30 MG ER.TAB PO SCH (08:08)
[2023-06-13] MEDS: HumaLOG 300 UNITS/3 ML VIAL SC PRN (12:43)
[2023-06-13] MEDS: Vancomycin 1 GM in Premix 1 BAG IVPB SCH (18:12)
[2023-06-13] MEDS ORDERED: Ondansetron PF 4 MG/2 ML Vial IVP PRN (21:41)
[2023-06-13] MEDS ORDERED: Ondansetron ODT 4 MG TAB PO PRN (21:41)
[2023-06-14 18:14] LABS: Vancomycin, Trough 13.4 ug/mL
[2023-06-15 07:55] VITALS: BP 123/75; TEMP 98.4
== END 2023-06-15 11:30 | disposition home or self-care (01) | DRG 699 ==
LOC: ERS 13:24 → T4-B 15:22 → ERHOLD 16:32 → T4-B 17:15
PROVIDERS: ADMIT Internal Medicine; ATTEND Internal Medicine
DX: T83.593A Infection and inflammatory reaction due to other urinary stents, initial encounter (principal); N10 Acute pyelonephritis; N20.1 Calculus of ureter; E66.9 Obesity, unspecified; C50.911 Malignant neoplasm of unspecified site of right female breast; Y83.8 Other surgical procedures as the cause of abnormal reaction of the patient, or of later complication, without mention of misadventure at the time of the procedure; I10 Essential (primary) hypertension; E11.9 Type 2 diabetes mellitus without complications; E78.5 Hyperlipidemia, unspecified; Z98.890 Other specified postprocedural states; Z90.710 Acquired absence of both cervix and uterus; Z79.899 Other long term (current) drug therapy; Z68.23 Body mass index [BMI] 23.0-23.9, adult
CPT/HCPCS: 36415; 36416; 74176; 80053; 80202; 81001; 83605; 85025; 85610; 85730; 87040; 87086; 96365; 96366; 96368; 96375; J0692; J1650; J1815; J1956; J3370; J3370-JW; J3490; J7050

== ENCOUNTER 2023-06-19 12:52 | Outpatient (CLI) | payer BC, MEDICARE ==
[2023-06-19 15:37] LABS: Bilirubin Neg (Negative); Blood, Urine 150 (Negative); Clarity Clear (Clear); Glucose, Urine (Dipstick) 250 mg/dL (Negative); Ketone, Urine Negative (Negative); Leukocyte 500 (Negative); Nitrite Negative (Negative); Protein, Urine (Dipstick) 30 mg/dl (Neg-Trace); Specific Gravity, Urine 1.015 (1.005-1.030); Urobilinogen Normal mg/dL (Less than 2)
[2023-06-19 15:45] LABS: Anion Gap 19 mmol/L (10-20); BUN (Urea Nitrogen) 25 mg/dL (9.8-20.1); Calc. Creatinine Clearance 0 mL/min (70-130); Carbon Dioxide 26 mmol/L (23-31); Chloride 95 mmol/L (98-107); Estimated GFR 53; Glucose 224 mg/dL (80-115); Potassium 4.9 mmol/L (3.5-5.1); Sodium 135 mmol/L (136-145)
[2023-06-19 15:51] LABS: PTT 26.5 sec (22.0-33.0); Prothrombin Time 10.3 sec (9.5-12.1)
[2023-06-19 15:52] LABS: Hematocrit 35.9 % (34.9-44.5); Hemoglobin 11.4 g/dL (12.0-15.5); Mean Corpuscular HGB CONC 31.8 g/dL (32.0-36.0); Mean Corpuscular Hemoglobin 28.9 pg (27.0-33.0); Mean Corpuscular Volume 91.1 fl (81.6-98.3); Mean Platelet Volume 8.9 fl (7.4-10.4); Platelet Count 659 10x3/uL (150-450); Red Blood Cell (RBC) Count 3.94 10x6/uL (3.90-5.03); White Blood Cell (WBC) Count 14.3 10x3/uL (3.5-10.5)
[2023-06-19 16:02] LABS: RBC/HPF 21-50 HPF (0-3); WBC/HPF 21-50 HPF (0-3)
[2023-06-19 16:03] LABS: Bacteria/HPF 1+ HPF (None Seen); Squamous Epithelial 0-3 HPF (0-3)
== END 2023-06-19 12:53 | disposition home or self-care (01) ==
LOC: LABBT 12:52
PROVIDERS: ATTEND Urology
DX: Z01.818 Encounter for other preprocedural examination (principal); N20.1 Calculus of ureter
CPT/HCPCS: 80048; 81001; 85027; 85610; 85730; 87086; 93005; 93010

== ENCOUNTER 2023-06-26 08:44 | Day surgery (SDC) | payer BC ==
[2023-06-19 13:37] VITALS: BMI 33.2
[2023-06-26] MEDS ORDERED: LevoFLOXacin D5W 500 mg (100 mL) BAG ONE (11:32)
[2023-06-26] MEDS ORDERED: Rocuronium Bromide 10 MG/ML (10ML VIAL) ONE (11:53)
[2023-06-26] MEDS ORDERED: PROPOFOL 20 ML ONE (11:53)
[2023-06-26] MEDS ORDERED: Lidocaine 1% PF 5 ML VIAL ONE (11:53)
[2023-06-26] MEDS ORDERED: fentaNYL PF 100 MCG/2 ML SYRINGE ONE (13:09)
[2023-06-26] MEDS ORDERED: Midazolam HCl 2 mg/2 ml Vial ONE (13:18)
[2023-06-26] MEDS ORDERED: Ondansetron PF 4 MG/2 ML Vial ONE (13:48)
[2023-06-26] MEDS ORDERED: Dexamethasone 20 MG/5 ML VIAL ONE (13:48)
[2023-06-26] MEDS ORDERED: SUGAMMADEX SODIUM 200 MG/2 ML VIAL ONE (13:53)
[2023-06-26] MEDS ORDERED: HYDROmorphone 2 MG/ML VIAL SLOW IVP PRN (14:04)
[2023-06-26] MEDS ORDERED: Promethazine HCl 25 MG/ML VIAL IM PRN (14:04)
[2023-06-26] MEDS ORDERED: Ondansetron HCl/PF 4 MG/2 ML Vial IVP PRN (14:04)
[2023-06-26] MEDS ORDERED: Phenazopyridine HCl 100 MG TAB ONE (15:05)
[2023-06-26] MEDS ORDERED: Oxybutynin 5 MG TAB ONE (15:06)
== END 2023-06-26 16:45 | disposition home or self-care (01) ==
LOC: SDC 08:44
PROVIDERS: ATTEND Urology
PROC: 0TC78ZZ Extirpation of Matter from Left Ureter, Via Natural or Artificial Opening Endoscopic (ICD-10-PCS; principal; 2023-06-26)
DX: N20.1 Calculus of ureter (principal); N39.0 Urinary tract infection, site not specified; I95.9 Hypotension, unspecified; I10 Essential (primary) hypertension; E78.5 Hyperlipidemia, unspecified; E11.9 Type 2 diabetes mellitus without complications; Z85.3 Personal history of malignant neoplasm of breast; Z87.442 Personal history of urinary calculi; Z98.890 Other specified postprocedural states; Z90.710 Acquired absence of both cervix and uterus; Z79.899 Other long term (current) drug therapy; Z79.84 Long term (current) use of oral hypoglycemic drugs
CPT/HCPCS: 36416; 82365; 88300; C1713; C1747; C1769; C2617; J1100; J1956; J2250; J2405; J2704

== ENCOUNTER 2023-09-18 12:47 | Outpatient (CLI) | payer BC | END 2023-09-18 12:48 | disposition home or self-care (01) | LOC: BICULT 12:47 | PROVIDERS: ATTEND Urology | DX: N20.0 Calculus of kidney (principal) | CPT/HCPCS: 76770 ==

== ENCOUNTER 2024-03-28 09:48 | Outpatient (CLI) | payer BC | END 2024-03-28 09:49 | disposition home or self-care (01) | LOC: BICMAMMO 09:48 | PROVIDERS: ATTEND Specialist | DX: Z12.31 Encounter for screening mammogram for malignant neoplasm of breast (principal); Z80.3 Family history of malignant neoplasm of breast; Z85.3 Personal history of malignant neoplasm of breast; Z91.89 Other specified personal risk factors, not elsewhere classified; Z98.890 Other specified postprocedural states | CPT/HCPCS: 77063; 77067 ==

== ENCOUNTER 2025-03-29 09:50 | Outpatient (CLI) | payer BC | END 2025-03-29 09:51 | disposition home or self-care (01) | LOC: BICMAMMO 09:50 | PROVIDERS: ATTEND Student in an Organized Health Care Education/Training Program | DX: Z12.31 Encounter for screening mammogram for malignant neoplasm of breast (principal); Z80.3 Family history of malignant neoplasm of breast; Z85.3 Personal history of malignant neoplasm of breast; Z98.890 Other specified postprocedural states | CPT/HCPCS: 77063; 77067 ==